=== PATIENT | male | born 1990 | race American Indian/Alaskan Native ===

== ENCOUNTER 2019-05-03 17:52 | Emergency (ER) | payer SELFPAY ==
[2019-05-03 18:03] VITALS: BP 119/74
--- NOTE | 2019-05-03 19:26 | Event Note ---
ED Screening Note Date of service: 05/03/19 Time: 19:23 ED Screening Note: This is a 29 y.o. M. that presents to the ER with pruritic rash to torso for 2 days. Taking benadryl. This initial assessment/diagnostic orders/clinical plan/treatment(s) is/are subject to change based on patients health status, clinical progression and re- assessment by fellow clinical providers in the ED. Further treatment and workup at subsequent clinical providers discretion. Patient/guardian urged not to elope from the ED as their condition may be serious if not clinically assessed and managed. Initial orders include:
--- NOTE | 2019-05-03 21:02 | Emergency Department Report ---
ED Rash HPI - HPI Chief Complaint: Skin Rash Stated Complaint: SKIN RASH ON CHEST Time Seen by Provider: 05/03/19 19:22 Duration: 2 Days Location: Chest Suspected Cause: Unknown Rash Symptoms: Yes Itching (occasional), Yes Lightheaded, No Facial Swelling, No Tongue/Oral Swelling, No Breathing Difficulties, No Wheezing/Dyspnea, No Peeling, No Blistering, No Malaise, No Myalgias Severity: mild Other History: 29-year-old [place] male just much department complaining of a pruritic rash to the torso present for the last week with no improvement. Reports no fever, chills, sweats no chest pain palpitations reports no change in activities of daily living. ED Review of Systems ROS: Stated complaint: SKIN RASH ON CHEST Other details as noted in HPI Comment: All other systems reviewed and negative ED Past Medical Hx - Past Medical History Previous Medical History?: No - Surgical History Past Surgical History?: No - Social History Smoking Status: Current Every Day Smoker Substance Use Type: Marijuana - Medications Home Medications: Home Medications Medication Instructions Recorded Confirmed Last Taken Type Mometasone Furoate [Elocon] 1 gm TP BID #45 cream..g. 05/03/19 Unknown Rx Rash Exam - Exam General: Vital signs noted. No distress. Alert and acting appropriately. HEENT: No Periorbital Edema, No Conjuctival Injection, No Chemosis, No Perioral Edema, No Tongue Edema, No Uvular Edema, No Compromised Airway, No Drooling Lungs: Yes Good Air Exchange (Normal Breath Sounds), No Wheezes, No Ronchi, No Stridor, No Cough, No Labored Respirations, No Retractions, No Use of Accessory Muscles, No Other Abnormal Lung Sounds Heart: Yes Regular, No Murmur Skin: Yes Other (has a macular hole multiple size rash scaly pigmentation involving several areas of the torso and it area to the flank resembling a herald patch), No Urticarial Rash, No Maculopapular Rash, No Morbilliform rash, No Bulla(e), No Excoriations, No Weeping, No Tenderness, No Erythema, No Edema, No Encrustations Other: Positive: Abdomen Normal, Neurologic Normal, Musculoskeletal Normal ED Course Vital Signs 05/03/19 18:02 Temperature 97.8 F Pulse Rate 79 Respiratory 16 Rate Blood Pressure 119/74 O2 Sat by Pulse 100 Oximetry ED Medical Decision Making - Medical Decision Making 29-year-old female with a pruritic skin rash symptoms in both psoriasis. We had long discussion about the unknown evolution of his rash and the inability to resolve the rash with medications. Patient will be given some creams to help the symptoms which she does experience occasional. Also he will be provided with educational handout on the expectations for this rash. Neurological pulses which were considered but are extremely less likely as insipidus, atopic otitis, eczema, viral exanthem Critical care attestation.: If time is entered above; I have spent that time in minutes in the direct care of this critically ill patient, excluding procedure time. ED Disposition Clinical Impression: Pityriasis in adult Disposition: DC-01 TO HOME OR SELFCARE Is pt being admited?: No Does the pt Need Aspirin: No Condition: Stable Instructions: Pityriasis rosea (ED) Prescriptions: Mometasone Furoate [Elocon] 1 gm TP BID #45 cream..g. Referrals: NAT ERWIN MD [Staff Physician] - 3-5 Days
== END 2019-05-03 21:43 | disposition home or self-care (01) ==
LOC: ED 17:52
DX: L21.0 Seborrhea capitis (principal); F17.200 Nicotine dependence, unspecified, uncomplicated; F12.10 Cannabis abuse, uncomplicated
CPT/HCPCS: 99282